=== PATIENT | female | born 1990 | race Caucasian/White ===

== ENCOUNTER 2017-04-04 15:38 | Emergency (ER) | payer SELFPAY ==
[2017-04-04] MEDS ORDERED: IOHEXOL 350 MG/ML 10 ML VIAL (for RAD DIAG) IVCONTRAST ONE (15:39)
[2017-04-04 15:41] VITALS: BP 160/87; PULSE 86; RESP 16; TEMP 98.7; O2SAT 100
[2017-04-04 16:18] LABS: AUTOMATED NEUTROPHIL # 4.1 TH/MM3 (1.8-7.7); BASOPHIL % 0.5 % (0.0-2.0); EOSINOPHIL # 0.1 TH/MM3 (0-0.4); EOSINOPHIL % 0.9 % (0.0-4.0); HEMOGLOBIN 14.1 GM/DL (11.6-15.3); LYMPH % 36.4 % (9.0-44.0); LYMPHOCYTE # 2.8 TH/MM3 (1.0-4.8); MEAN CELL VOLUME 86.1 FL (80.0-100.0); MEAN CORPUSCULAR HEMOGLOBIN 28.3 PG (27.0-34.0); MEAN CORPUSCULAR HGB CONC 32.8 % (32.0-36.0); MEAN PLATELET VOLUME 9.3 FL (7.0-11.0); MONO % 9.3 % (0.0-8.0); MONOCYTE # 0.7 TH/MM3 (0-0.9); NEUT % 52.9 % (16.0-70.0); PLATELET COUNT 221 TH/MM3 (150-450); RED BLOOD COUNT 4.99 MIL/MM3 (4.00-5.30); RED CELL DISTRIBUTION WIDTH 13.9 % (11.6-17.2); WHITE BLOOD COUNT 7.8 TH/MM3 (4.0-11.0)
[2017-04-04 16:21] LABS: BILIRUBIN, URINE NEG (NEG); BLOOD, URINE NEG (NEG); GLUCOSE,URINE NEG (NEG); KETONE, URINE NEG (NEG); MUCUS URINE FEW /lpf (OCC); NITRITE,URINE NEG (NEG); SQUAMOUS EPITHELIAL CELL URINE 3 /hpf (0-5); URINE COLOR YELLOW (YELLW/STRAW); URINE LEUKOCYTE ESTERASE MOD (NEG)
[2017-04-04 16:33] LABS: ALBUMIN 4.1 GM/DL (3.4-5.0); AST (GOT) 29 U/L (15-37); BLOOD UREA NITROGEN 11 MG/DL (7-18); CALCIUM 8.8 MG/DL (8.5-10.1); CHLORIDE 102 MEQ/L (98-107); CREATININE 0.67 MG/DL (0.50-1.00); GLOMERULAR FILTRATION RATE 105 ML/MIN (>89); GLUCOSE,RANDOM 74 MG/DL (74-106); LIPASE 691 U/L (73-393); SODIUM (NA) 138 MEQ/L (136-145)
[2017-04-04 16:34] LABS: ALT (GPT) 41 U/L (10-53)
[2017-04-04 16:36] LABS: ALKALINE PHOSPHATASE 60 U/L (45-117); TOTAL BILIRUBIN ADULT 0.5 MG/DL (0.2-1.0); TOTAL PROTEIN 8.9 GM/DL (6.4-8.2)
--- NOTE | 2017-04-04 17:24 | PD ---
HPI Chief Complaint: Abdominal Pain Time Seen by Provider: 17:01 Travel History International Travel<30 days: No Contact w/Intl Traveler<30days: No Traveled to known affect area: No History of Present Illness HPI 26y female presents to the ED with abdominal pain since yesterday. Says he pain is dull and constant. States the pain started in the RLQ and has radiated to the RUQ and back throughout the day. Pt denies fever, chills, chest pain, shortness of breath, anorexia. Denies history of surgeries. Pt has never had pain like this before. Denies alcohol use but does smoke weed everyday. Denies cigarette use. States she has a history of a right ovarian cyst that required intervention, however whenever they were to perform the surgery, the cyst "disappeared". PFS Past Medical History Medical History: Denies Significant Hx ?: Not LMP: 03/22/17 : 0 Ovarian Cysts: Yes Social History Alcohol Use: Yes (SOCIAL) Tobacco Use: No Substance Use: No Allergies-Medications (Allergen,Severity, Reaction): Coded Allergies: No Known Allergies (Verified Adverse Reaction, Unknown, 04/04/17) Reported Meds & Prescriptions Reported Meds & Active Scripts Active Macrobid (Nitrofurantoin Monohydrate Macrocrystals) 100 Mg Capsule 100 Mg PO BID 7 Days Review of Systems Except as stated in HPI: all other systems reviewed are Neg Physical Exam Narrative GENERAL: Well-developed well-nourished in no apparent distress SKIN: Focused skin assessment warm/dry. HEAD: Atraumatic. Normocephalic. EYES: Pupils equal and round. No scleral icterus. No injection or drainage. ENT: No nasal bleeding or discharge. Mucous membranes pink and moist. NECK: Trachea midline. No JVD. No lymphadenopathy CARDIOVASCULAR: Regular rate and rhythm. No murmur appreciated. RESPIRATORY: No accessory muscle use. Clear to auscultation. Breath sounds equal bilaterally. GASTROINTESTINAL: Abdomen soft, mildly tender to palpation RLQ, RUQ. MUSCULOSKELETAL: No obvious deformities. No clubbing. No cyanosis. No edema. NEUROLOGICAL: Awake and alert. No obvious cranial nerve deficits. Motor grossly within normal limits. Normal speech. PSYCHIATRIC: Appropriate mood and affect; insight and judgment normal. Data Data Last Documented VS Vital Signs Date Time Temp Pulse Resp B/P (MAP) Pulse Ox O2 Delivery O2 Flow Rate FiO2 12/14/17 18:46 04/04/17 15:41 98.7 86 16 100 Room Air Orders Orders Complete Blood Count With Diff (04/04/17 15:59) Comprehensive Metabolic Panel (04/04/17 15:59) Lipase (04/04/17 15:59) Urinalysis - C+S If Indicated (04/04/17 15:59) Ed Urine Pregnancytest Poc (04/04/17 15:59) Urine Culture (04/04/17 16:10) Ct Abd/Pel W Iv Contrast(Rout) (04/04/17 ) Iohexol 350 Inj (Omnipaque 350 Inj) (04/04/17 15:39) Ed Discharge Order (04/04/17 18:35) Labs Laboratory Tests Test 04/04/17 16:10 White Blood Count 7.8 TH/MM3 Red Blood Count 4.99 MIL/MM3 Hemoglobin 14.1 GM/DL Hematocrit 43.0 % Mean Corpuscular Volume 86.1 FL Mean Corpuscular Hemoglobin 28.3 PG Mean Corpuscular Hemoglobin Concent 32.8 % Red Cell Distribution Width 13.9 % Platelet Count 221 TH/MM3 Mean Platelet Volume 9.3 FL Neutrophils (%) (Auto) 52.9 % Lymphocytes (%) (Auto) 36.4 % Monocytes (%) (Auto) 9.3 % Eosinophils (%) (Auto) 0.9 % Basophils (%) (Auto) 0.5 % Neutrophils # (Auto) 4.1 TH/MM3 Lymphocytes # (Auto) 2.8 TH/MM3 Monocytes # (Auto) 0.7 TH/MM3 Eosinophils # (Auto) 0.1 TH/MM3 Basophils # (Auto) 0.0 TH/MM3 CBC Comment DIFF FINAL Differential Comment Urine Color YELLOW Urine Turbidity HAZY Urine pH 8.0 Urine Specific Clark 1.025 Urine Protein TRACE mg/dL Urine Glucose (UA) NEG mg/dL Urine Ketones NEG mg/dL Urine Occult Blood NEG Urine Nitrite NEG Urine Bilirubin NEG Urine Urobilinogen 4.0 MG/DL Urine Leukocyte Esterase MOD Urine RBC 6 /hpf Urine WBC 22 /hpf Urine Squamous Epithelial Cells 3 /hpf Urine Mucus FEW /lpf Microscopic Urinalysis Comment CULTURE INDICATED Blood Urea Nitrogen 11 MG/DL Creatinine 0.67 MG/DL Random Glucose 74 MG/DL Total Protein 8.9 GM/DL Albumin 4.1 GM/DL Calcium Level 8.8 MG/DL Alkaline Phosphatase 60 U/L Aspartate Amino Transf (AST/SGOT) 29 U/L Alanine Aminotransferase (ALT/SGPT) 41 U/L Total Bilirubin 0.5 MG/DL Sodium Level 138 MEQ/L Potassium Level 3.6 MEQ/L Chloride Level 102 MEQ/L Carbon Dioxide Level 27.0 MEQ/L Anion Gap 9 MEQ/L Estimat Glomerular Filtration Rate 105 ML/MIN Lipase 691 U/L [facility] Medical Decision Making Medical Screen Exam Complete: Yes Emergency Medical Condition: Yes Differential Diagnosis Appendicitis, pancreatitis, gastritis, gastroenteritis Narrative Course 26y female presents to the ED with abdominal pain since yesterday. Says he pain is dull and constant. States the pain started in the RLQ and has radiated to the RUQ and back throughout the day. Pt denies fever, chills, chest pain, shortness of breath, anorexia. Denies history of surgeries. Pt has never had pain like this before. Denies alcohol use but does smoke weed everyday. Denies cigarette use. States she has a history of a right ovarian cyst that required intervention, however whenever they were to perform the surgery, the cyst "disappeared". Vital signs stable Physical exam with mild abdominal tenderness to palpation. Labs demonstrated elevated lipase. CT abdomen and pelvis ordered to rule out pancreatitis, appendicitis, or cholecystitis. CT demonstrates 2.1 cm left ovarian cyst. 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 Discussed the results and findings of today's tests. Patient understood. Advised patient to return for worsening or persistent symptoms. Diagnosis Primary Impression: Ovarian cyst Qualified Codes: N83.202 - Unspecified ovarian cyst, left side Additional Impression: UTI (urinary tract infection) Qualified Codes: N30.00 - Acute cystitis without hematuria Referrals: Primary Care Physician Additional Instructions: Follow-up with a primary care physician within 2-3 days. If your symptoms worsen or persists return to the emergency department. Scripts Nitrofurantoin Monohydrate Macrocrystals (Macrobid) 100 Mg Capsule 100 MG PO BID for Infection for 7 Days, #14 CAP 0 Refills Prov: Darlene Davalos 04/04/17 Disposition: 01 DISCHARGE HOME Condition: Stable Liliana Moore Apr 04, 2017 17:24
--- NOTE | 2017-04-04 18:24 | RADRPT ---
EXAM DATE/TIME: 04/04/2017 18:11 [facility] COMPARISON: No previous studies available for comparison. INDICATIONS : Patient complains right upper quadrant pain. IV CONTRAST: 72 cc Omnipaque 350 (iohexol) IV ORAL CONTRAST: No oral contrast ingested. RADIATION DOSE: 9.20 CTDIvol (mGy) MEDICAL HISTORY : None SURGICAL HISTORY : None. ENCOUNTER: Initial ACUITY: 2 days PAIN SCALE: 6/10 LOCATION: Right upper quadrant TECHNIQUE: Volumetric scanning of the abdomen and pelvis was performed. Using automated exposure control and ad justment of the mA and/or kV according to patient size, radiation dose was kept as low as reasonably achievable to obtain optimal diagnostic quality images. DICOM format image data is available electro nically for review and comparison. FINDINGS: LOWER LUNGS: The visualized lower lungs are clear. LIVER: Homogeneous density without lesion. There is no dilation of the biliary tree. No calcified gallston es. SPLEEN: Normal size without lesion. PANCREAS: Within normal limits. KIDNEYS: Normal in size and shape. There is no mass, stone or hydronephrosis. ADRENAL GLANDS: Within normal limits. VASCULAR: There is no aortic aneurysm. BOWEL/MESENTERY: The stomach, small bowel, and colon demonstrate no acute abnormality. There is no free intraperitone al air or fluid. ABDOMINAL WALL: Within normal limits. RETROPERITONEUM: There is no lymphadenopathy. BLADDER: No wall thickening or mass. REPRODUCTIVE: 2.1 cm left ovarian cyst. INGUINAL: There is no lymphadenopathy or hernia. MUSCULOSKELETAL: Within normal limits for patient age. CONCLUSION: 1. No acute findings. No CT evidence for appendicitis or pancreatitis. 2. 2.1 cm left ovarian cyst. Olegario Ortiz MD on April 04, 2017 at 18:20 Board Certified Radiologist. This report was verified electronically.
[2017-04-04] MEDS ORDERED: MACR100C2 PO (18:44)
== END 2017-04-04 18:47 | disposition home or self-care (01) ==
LOC: NEPD 15:38
DX: N83.202 Unspecified ovarian cyst, left side (principal); N30.00 Acute cystitis without hematuria; B96.89 Other specified bacterial agents as the cause of diseases classified elsewhere
CPT/HCPCS: 74177; 80053; 81001; 83690; 84703; 85025; 87086; 99285; Q9967